=== PATIENT | female | born 1985 | race African-American/Black ===

== ENCOUNTER 2020-06-07 00:12 | Outpatient (CLI) | payer OTHER, SELFPAY ==
[2020-06-07 20:24] LABS: SARS-CoV-2 RNA PCR Negative
== END 2020-06-07 00:13 | disposition home or self-care (01) ==
LOC: ANHCOVIDDT 00:12
PROVIDERS: Visit Provider Obstetrics & Gynecology
DX: Z01.812 Encounter for preprocedural laboratory examination (principal); Z20.828 Contact with and (suspected) exposure to other viral communicable diseases
CPT/HCPCS: 87635; C9803; U0003

== ENCOUNTER 2020-06-09 00:15 | Day surgery (SDC) | payer OTHER, SELFPAY ==
[2020-05-24 16:30] VITALS: BMI 37.8
[2020-06-09] VITALS (8 sets, daily range): BP systolic 132–150; BP diastolic 71–98; PULSE 73–102; RESP 12–18; TEMP 36.3–36.5; O2SAT 98–100
[2020-06-09] MEDS: ACETAMINOPHEN 500 MG TABLET 1000 MG PO (06:18)
[2020-06-09] MEDS: LACTATED RINGERS 1,000 ML 30 ML IV CONT ×2 (06:20→08:27)
--- NOTE | 2020-06-09 07:18 | WPDANESEPPF ---
Anes - Initial Pre Proc Eval Procedure: Operation Date: 06/09/20 07:30 Proposed Procedures p Laparoscopic Bilateral Salpingectomy - Mak Corrales MD Date/Time: 06/09/20 07:18 Surgeon: Mak Corrales MD Pre Op Diagnosis: Sterilization Patient Data Age: 34 Gender: F Height: 5 ft 4 in Weight: 108 kg Last Vital Signs Temp 97.7 F 06/09/20 06:17 Pulse 81 06/09/20 06:17 Resp 18 06/09/20 06:17 BP 132/71 06/09/20 06:17 Pulse Ox 98 06/09/20 06:17 Allergies Allergy/AdvReac Type Severity Reaction Status Date / Time No Known Allergies Allergy Verified 06/09/20 07:05 Home Medications Medication Instructions Recorded Confirmed Type L norgest/e.estradiol-e.estrad 1 tablet PO DAILY #91 each 04/20/20 05/24/20 Rx 0.15 mg-30 mcg (84)/10 mcg(7) tabs,3mos Patient hx anesthesia problems: none Family hx anesthesia problems: none PMFSH Social History Social History Smoking status: Never smoker Second hand tobacco smoke exposure: No Alcohol intake: current Drinks per week: 3 Substance use: current Substance use type: marijuana Last use: 05/25/2020 Spiritual care concerns: No Anes - Eval Final PreProcedure Day of Procedure 06/09/20 07:18 Patient weight: morbidly obese Heart: regular rate and rhythm Lungs: clear to auscultation Airway: Mallampati scale class II Neurological: alert and oriented Last oral intake: >/= 8 hours ASA classification: III Emergent: no Anesthetic plan: proceed Anesthesia type and monitoring: general ETT and standard monitoring Informed Consent: The patient's anesthetic plan and its attendant risks and benefits were discussed with the patient/family/POA. Questions were solicited and answers provided to the satisfaction of the patient/family/POA.
--- NOTE | 2020-06-09 07:18 | PM.IMHP ---
H&P: HPI History of Present Illness Date/Time: 06/09/20 07:18 Chief complaint: Sterilization Narrative: Josh Cason is a 34 year old female Para 3 with satisfied parity. She desires permanent sterilization. She declines all other non permanent forms of control. She denies pelvic pain. She has been informed of risk benefit of laparoscopic sterilization via bilateral salpingectomy and risk benefit of other control options and risk benefit of vasectomy. She continues to desire sterilization. She may decide to continue the pill for menstrual control. Review of Systems Review of Systems: All systems reviewed & are unremarkable except as noted in HPI and below Constitutional: Constitutional: Reports no additional constitutional complaints Eyes: Eyes: Reports no additional eye complaints ENT: Reports Normal hearing present Cardiovascular: Cardiovascular: Denies chest pain and Denies dyspnea Respiratory: Respiratory: Reports no additional respiratory complaints, Denies dyspnea and Reports other Gastrointestinal: Gastrointestinal: Denies abdominal pain Genitourinary: Genitourinary: Reports no additional female genitourinary complaints, Reports as per HPI, Denies dyspareunia, Denies vaginal discharge, Denies vaginal dryness, Denies vaginal odor and Denies vaginal pruritus Integumentary/Breasts: Skin/Breast: Denies breast mass and Denies nipple discharge Neurologic: Reports Normal hearing present Psychiatric: Psychiatric: Reports no additional psychiatric complaints Endocrine: Endocrine: Reports no additional endocrine complaints Hematologic/Lymphatic: Hematologic/Lymphatic: Reports no additional hematologic/lymphatic complaints [facility] Social History Social History Smoking status: Never smoker Second hand tobacco smoke exposure: No Alcohol intake: current Drinks per week: 3 Substance use: current Substance use type: marijuana Last use: 05/25/2020 Spiritual care concerns: No Meds Home Medications and Allergies Home Medications Medication Instructions Recorded Confirmed Type L norgest/e.estradiol-e.estrad 1 tablet PO DAILY #91 each 04/20/20 05/24/20 Rx 0.15 mg-30 mcg (84)/10 mcg(7) tabs,3mos Allergies Allergy/AdvReac Type Severity Reaction Status Date / Time No Known Allergies Allergy Verified 06/09/20 07:05 Vital Signs Vital Signs - 24 hr 06/09/20 06:17 Temperature 97.7 F Pulse Rate 81 Respiratory Rate 18 Blood Pressure 132/71 Pulse Oximetry 98 Exam Const: Orientation/consciousness: oriented to person and oriented to place HENMT: Head: normal to inspection Eyes: General: appearance normal, both eyes and all related structures Resp: Effort & Inspection: normal respiratory effort Auscultation: clear to auscultation bilaterally Cardio: Rate: regular rate Rhythm: regular rhythm GI: Inspection: normal to inspection GI Palp: No abdominal tenderness, Yes Soft to palpation and No Rebound tenderness present : External Female Exam: normal external appearance Bimanual exam- vagina & uterus: normal bimanual exam Bimanual Exam- Adnexa, other: normal adnexae Neuro: General: oriented to person and oriented to place Extrem: General: normal to inspection Psych: Appearance: grossly normal and well kempt Assessment and Plan Assessment and plan (1) Admission for sterilization: Code(s): Z30.2 - Encounter for sterilization Status: Acute Assessment and Plan: Will perform laparoscopic bilateral sterilization by bilateral salpingectomy.
--- NOTE | 2020-06-09 08:22 | PM.OP ---
Procedure Note - Brief Procedure Note - Brief Date of procedure: 06/10/20 Pre-op diagnosis: Sterilization Post-op diagnosis: same Procedure performed: Laparoscopic Bilateral salpingectomy Description of procedure: After informed consent was obtained patient was taken to the operating room and general endotracheal anesthesia was administered. She was placed in low lithotomy need prep prepped sterile fashion. Attention was turned to the vagina speculum inserted single-tooth tenaculum placed on anterior lip of the cervix. [place] uterine manipulator placed into the cervical canal. The speculum was removed. Attention was then turned to the abdomen. With sterile gloves a vertical incision was made at the umbilicus and a Veress needle was inserted into the abdomen confirmation into the abdomen obtained with free flow of fluid and normal peritoneal pressures. A pneumoperitoneum of 15 mm per mercury was obtained. The 5 mm port was inserted under laparoscopic visualization. Patient was placed in Trendelenburg position. Attention was turned to the suprapubic area and a 5 mm port was inserted under laparoscopic visualization. The pelvic organs were visualized. Attention was turned to the right side of the abdomen and another 5 mm port was inserted under laparoscopic visualization. Using the LigaSure the right fallopian tube was excised to near the entrance to the uterus. This was removed through the port. Attention was then turned to the left fallopian tube which was grabbed at the distal end and cauterized from the mesial salpinx to within a cm of the entrance to the entrance to the uterus. The fallopian tube was removed through the 5 mm port. Hemostasis was noted at both sites. Patient was taken out of Trendelenburg position the pneumoperitoneum was released and the skin incisions were closed in a subcuticular fashion with 4 O Vicryl. .5% Marcaine was injected subcutaneously. Anesthesia: GETA Surgeon: Mak Corrales MD Estimated blood loss (mL): 10 Urine output (mL): 25 Drains: No Packing: No Pathology: yes (right and left fallopian tube) Complications: No immediate complications Condition: stable Disposition: PACU Findings: Uterus boggy soft, mildly enlarged, left fallopian tube slightly dilated, small paratubal cyst on left fallopian tube, normal ovaries bilaterally
[2020-06-09] MEDS: ONDANSETRON INJ 4 MG/2 ML VIAL IV PUSH (09:22)
== END 2020-06-09 10:50 | disposition home or self-care (01) ==
PROVIDERS: Visit Provider Obstetrics & Gynecology
PROC: (CPT 49320; principal; 2020-06-09 07:30)
DX: Z30.2 Encounter for sterilization (principal); N83.8 Other noninflammatory disorders of ovary, fallopian tube and broad ligament; E66.01 Morbid (severe) obesity due to excess calories; Z68.41 Body mass index [BMI] 40.0-44.9, adult
CPT/HCPCS: 58661; 88302; A9270; J0330; J1100; J1885; J2250; J2405; J2704; J3010; J7030; J7120

== ENCOUNTER 2021-07-07 07:39 | Emergency (ER) | payer OTHER, SELFPAY ==
--- NOTE | ~2021-07-07 | XR_ITS ---
EXAMINATION: XR chest 1V portable INDICATION: Cough and congestion TECHNIQUE: Portable AP chest at 0854 hours COMPARISON: None available FINDINGS: The lungs are free of acute opacities. There is no pleural effusion or pneumothorax. The ca rdiomediastinal silhouette is normal. IMPRESSION: 1. No acute cardiopulmonary abnormality. Reviewed, dictated and finalized at location A.
[2021-07-07 08:34] VITALS: BP 142/94; PULSE 99; RESP 14; TEMP 36.9; O2SAT 99
[2021-07-07 08:55] VITALS: O2SAT 99
[2021-07-07 09:35] VITALS: PULSE 84; RESP 16
[2021-07-07] MEDS: ALBUTEROL SULFATE NEB 2.5 MG/0.5 ML INH 5 MG INHALATION (09:39)
[2021-07-07] MEDS: IPRATROPIUM BR 0.02% INH SOLN 0.5 MG/2.5 ML VIAL INHALATION (09:40)
[2021-07-07 09:52] VITALS: PULSE 104; RESP 16
--- NOTE | 2021-07-07 09:52 | ED.GENADULT ---
HPI - General Adult General Chief complaint: Upper Respiratory Infection Stated complaint: sob Time Seen by Provider: 07/07/21 09:10 Source: patient Mode of arrival: ambulatory Limitations: no limitations History of Present Illness HPI narrative: Patient who has been vaccinated presents with chief complaint of cough, congestion, headache, diarrhea and dyspnea on exertion that began yesterday. Patient states that her children have runny nose and congestion do not have the other symptoms she is experiencing. Patient states she has not come in contact with a known Covid positive person to her knowledge. Patient denies chest pain, vomiting, syncope, lower extremity pain or swelling. Related Data Allergies Allergy/AdvReac Type Severity Reaction Status Date / Time No Known Allergies Allergy Verified 07/05/20 12:10 Review of Systems Review of Systems: CONSTITUTIONAL: Denies fever, chills, or sweats. EYES: Denies visual changes, redness, or discharge. ENT: Reports rhinorrhea, congestion, sore throat, and left ear otalgia. CARDIOVASCULAR: Denies chest pain, palpitations, or edema. RESPIRATORY: Denies cough or dyspnea. GASTROINTESTINAL: Reports diarrhea denies abdominal pain, nausea, vomiting GENITOURINARY: Denies dysuria or hematuria. SKIN: Denies rash or itching. MUSCULOSKELETAL: Denies back pain, joint pain, or myalgia. NEUROLOGIC: Reports headache denies syncope, numbness, dizziness, or weakness. PSYCHIATRIC: Denies anxiety or depression. [facility] Past Medical History Medical History (Updated 07/07/21 @ 10:02 by Steven Monique PA-C) Asthma Depression Normal spontaneous vaginal delivery Surgical History Surgical History Tubal ligation status Family History Family History Father Family history of type 2 diabetes mellitus Hypertension Grandparent Family history of type 2 diabetes mellitus Mother Hypothyroidism Other Family history of malignant neoplasm of breast Family history of pancreatic cancer Social History Social History Smoking status: Never smoker Second hand tobacco smoke exposure: No Alcohol intake: current Drinks per week: 3 Substance use: current Substance use type: marijuana Last use: 05/25/2020 Spiritual care concerns: No Exam Narrative: GENERAL: Well-appearing, well-nourished, and in no acute distress. HEAD: Normocephalic, atraumatic. EYES: PERRLA and EOMI. ENT: Nares clear, no rhinorrhea or epistaxis. Mucous membranes moist. Oropharynx without tonsillar hypertrophy exudate or other lesions. Bilateral TMs pearly figueroa nonbulging NECK: Supple. No adenopathy or masses range of motion intact. CHEST: Clear to auscultation. No respiratory distress wheezing & some rhonchi heard diffusely. HEART: Regular rate and rhythm. No murmur heard. Normal peripheral pulses. ABDOMEN: Soft, nontender, nondistended, normal active bowel sounds. EXTREMITIES: Normal range of motion. No edema. SKIN: Warm, dry, no rash. NEURO: No focal deficits. Alert and oriented x3. PSYCH: Normal mood and affect. Course Vital Signs Vital signs: Vital Signs Temperature 98.4 F 07/07/21 08:34 Pulse Rate 99 07/07/21 08:34 Respiratory Rate 14 07/07/21 08:34 Blood Pressure 142/94 H 07/07/21 08:34 Pulse Oximetry 99 07/07/21 08:34 Temperature 98.4 F 07/07/21 08:34 Pulse Rate 100 07/07/21 09:55 Respiratory Rate 14 07/07/21 09:55 Blood Pressure 149/72 H 07/07/21 09:55 Pulse Oximetry 98 07/07/21 09:55 Medical Decision Making MDM Narrative Medical decision making narrative: Patient's rhonchi and wheezing have clear after DuoNeb treatment. Because of this patient will be prescribed steroids and albuterol inhaler. Vital Signs Vital Signs: Vital Signs Temperature 98.4 F 07/07/21 08:34 Pulse Rate 99 07/07/21
[2021-07-07] MEDS: methylPREDNISolone SOD SUCC 125 MG VIAL IM (09:53)
[2021-07-07 09:55] VITALS: BP 149/72; PULSE 100; RESP 14; O2SAT 98
[2021-07-07 19:52] LABS: SARS-CoV-2 RNA PCR Negative
== END 2021-07-07 10:20 | disposition home or self-care (01) ==
PROVIDERS: Physician Assistant; Emergency Provider Emergency Medicine; PCP Obstetrics & Gynecology
DX: B34.9 Viral infection, unspecified (principal); Z20.822 Contact with and (suspected) exposure to COVID-19; J45.909 Unspecified asthma, uncomplicated
CPT/HCPCS: 71045; 94640; 96372; 99283; C9803; J2930; U0003; U0005

== ENCOUNTER 2023-04-13 15:46 | Emergency (ER) | payer OTHER, SELFPAY ==
--- NOTE | ~2023-04-13 | CT_ITS ---
EXAMINATION: CT abdomen pelvis w con DATE: 04/13/2023 16:45 INDICATION: Epigastric pain TECHNIQUE: Computed tomography (CT) of the abdomen and pelvis was performed with 100 mL Omnipaque-350 intravenous contrast. Automated exposure control and iterative reconstruction technique were employe d. The dose-length product was 1021.59 mGy-cm. COMPARISON: None. FINDINGS: Lower thorax: Unremarkable Liver: Normal. Biliary/Gallbladder: The gallbladder is partially contracted No bile duct dilation. Pancreas: No mass or duct dilation. Spleen: Normal. Adrenals:No mass. Kidneys: No mass, stone, or hydronephrosis. GI tract: No small or large bowel dilation. Normal appendix. Mesentery/Peritoneum: No ascites, mass, or free air. Prominent right lower quadrant lymph nodes, not pathologic based on size criteria. Retroperitoneum: No mass. Pelvis: Enlarged somewhat heterogeneous uterus, possibly secondary to fibroids. Normal bilateral ovar ies. Small volume free pelvic fluid, within physiologic range. Soft Tissues: Soft tissues and body wall unremarkable. Bones: No acute osseous finding. IMPRESSION: No acute abdominopelvic process detected Reviewed, dictated and finalized at location K.
[2023-04-13 15:52] VITALS: BP 146/80; PULSE 100; RESP 20; TEMP 36.6; O2SAT 100
[2023-04-13 16:21] LABS: Basophils Absolute Auto 0.1 K/mm3 (0.0-0.1); Basophils Percent Auto 0.5 % (0.2-1.2); Eosinophils Absolute Auto 0.2 K/mm3 (0-0.3); Hematocrit 35.3 % (37.0-47.0); Immature Granulocyte Absolute 0.01 K/mm3 (0.00-0.031); Immature Granulocyte Percent A 0.1 % (0-0.5); Lymphocytes Absolute Auto 4.13 K/mm3 (0.9-3.2); Lymphocytes Percent Auto 38.4 % (18.3-44.2); Mean Corpuscular HGB Conc 31.2 g/dl (32-36); Mean Corpuscular Hemoglobin 26.1 pg (26-34); Mean Corpuscular Volume 83.6 fl (80-100); Monocytes Absolute Auto 0.6 K/mm3 (0.1-0.6); Monocytes Percent Auto 5.3 % (2.6-8.5); Neutrophils Absolute Auto 5.8 K/mm3 (1.3-6.7); Neutrophils Percent Auto 53.7 % (45.5-73.1); Platelet Count Result 457 k/mm3 (150-375); Red Blood Count 4.22 M/mm3 (4.2-5.4); Red Cell Distribution Width 14.8 % (11.5-14.5); White Blood Count 10.8 K/mm3 (4.5-10.0)
[2023-04-13 16:30] LABS: Alanine Aminotransferase 23 U/L (6-35); Albumin Level 4.7 g/dL (3.5-5.1); Alkaline Phosphatase 92 U/L (38-126); Anion Gap 7 mmol/L (8-16); Aspartate Amino Transferase 26 U/L (14-36); Bilirubin,Total 0.2 mg/dL (0.2-1.3); Blood Urea Nitrogen 13 mg/dL (7-17); Calcium 9.3 mg/dL (8.4-10.2); Carbon Dioxide 25 mmol/L (22-30); Chloride 105 mmol/L (98-107); Estimated CRCL calculation 103 ml/min; Estimated Glomerular Filt Rate > 60; Glucose 113 mg/dL (65-110); Lipase 68 U/L (23-300); Potassium 3.8 mmol/L (3.4-5.0); Sodium 137 mmol/L (137-145)
--- NOTE | 2023-04-13 16:43 | ED.ABDPAIN ---
HPI - Abdominal Pain General Chief Complaint: Abdominal Pain Stated Complaint: Abdominal pain Time Seen by Provider: 04/13/23 16:05 History of Present Illness HPI narrative: This is a 37-year-old female who denies significant past medical history, presenting to the emergency department complaining of epigastric abdominal pain for the past 2 hours. The patient states approximately 30 minutes prior to onset of pain, she ate ice cream then felt a severe, 8/10 twisting/knotting sensation in the epigastric abdomen, associated with nausea but no radiation. She tried Pepto-Bismol with no change in symptoms. She denies recent trauma. Her LMP was March 24, 2023. Related Data Allergies Allergy/AdvReac Type Severity Reaction Status Date / Time No Known Allergies Allergy Verified 04/13/23 16:55 Review of Systems Review of Systems: CONSTITUTIONAL: Denies fever, chills, or sweats. CARDIOVASCULAR: Denies chest pain, palpitations, or edema. RESPIRATORY: Denies cough or dyspnea. GASTROINTESTINAL: Epigastric abdominal pain, nausea denies vomiting, or diarrhea. GENITOURINARY: Denies dysuria or hematuria. SKIN: Denies rash or itching. MUSCULOSKELETAL: Denies back pain, joint pain, or myalgia. NEUROLOGIC: Denies headache, numbness, dizziness, or weakness. PSYCHIATRIC: Denies anxiety or depression. [facility] Past Medical History Medical History (Updated 04/14/23 @ 00:00 by Background Daemon) Asthma Depression Normal spontaneous vaginal delivery Surgical History Surgical History Tubal ligation status Family History Family History Father Family history of type 2 diabetes mellitus Hypertension Grandparent Family history of type 2 diabetes mellitus Mother Hypothyroidism Other Family history of malignant neoplasm of breast Family history of pancreatic cancer Social History Social History Smoking status: Never smoker Second hand tobacco smoke exposure: No Alcohol intake: current Drinks per week: 3 Substance use: current Substance use type: marijuana Last use: 05/25/2020 Spiritual care concerns: No Exam Narrative: GENERAL: Well-developed, well-nourished, and in no acute distress. HEAD: Normocephalic, atraumatic. EYES: PERRLA and EOMI. CHEST: Clear to auscultation. No respiratory distress. No wheezes rales or rhonchi HEART: Regular rate and rhythm. No murmur heard. Normal peripheral pulses. ABDOMEN: Soft, nontender, nondistended, normal active bowel sounds. No CVA tenderness to palpation EXTREMITIES: Normal range of motion. No edema. SKIN: Warm, dry, no rash. NEURO: No focal deficits. Alert and oriented x3. PSYCH: Normal mood and affect. Course Course Emergency Course: 17:10 - CBC demonstrates mild white blood cell count elevation at 10.8. Mild anemia with hemoglobin of 11, increased from the patient's baseline of 10 and 457. Chemistries unremarkable. UA is a contaminated catch but is not concerning for UTI. CT abdomen pelvis not concerning for acute intra-abdominal process. On reevaluation after GI cocktail, the patient states her pain is improved. I suspect gastritis. Will discharge with PPI and recommendation for primary care follow-up. Discussed return and emergency precautions including signs/symptoms of acute abdomen and intractable vomiting. The patient voiced understanding and is comfortable with the plan. All questions answered to her satisfaction. Vital Signs Vital signs: Vital Signs Temperature 97.9 F 04/13/23 15:52 Pulse Rate 100 04/13/23 15:52 Respiratory Rate 04/13/23 15:52 Blood Pressure 146/80 H 04/13/23 15:52 Pulse Oximetry 100 04/13/23 15:52 Temperature 97.9 F 04/13/23 15:52 Pulse Rate 100 04/13/23 15:52 Respiratory Rate 04/13/23 15:52 Blood Pressure 146/80 H
[2023-04-13] MEDS: SODIUM CHLORIDE 0.9% IV 1,000 ML 999 ML IV CONT (16:55)
[2023-04-13] MEDS: BELLADONNA ALK/PHENOB ELIX 10 ML, MAG HYDROX/ALUMINUM HYD/SIMETH 30 ML, LIDOCAINE HCL 2... PO (16:55)
[2023-04-13 17:23] LABS: Appearance Urine Turbid (Clear); Bacteria Urine 4+ /hpf; Bilirubin Urine Negative (Negative); Blood Urine Negative (Negative); Color Urine Yellow (Yellow); Glucose Urine UA Negative (Negative); Ketones Urine Trace mg/dL (Negative); Leukocyte Esterase Ur 1+ LEU/UL (Negative); Need Manual Microscopic Reviewed; Nitrate Urine Negative (Negative); Non Pathogenic Casts 0-2; Protein Urine Trace mg/dL (Negative); RBC Urine 0-2 /hpf (0-2); Squamous Epithelial Cell Urine Many /hpf (Few); WBC Urine 51-100 /hpf; pH Urine 6.5 (5.0-9.0)
[2023-04-13 17:24] LABS: Specific Grav Ur > 1.045 (1.001-1.035)
[2023-04-13 17:25] LABS: Add Urine Microscopic? YES
== END 2023-04-13 17:26 | disposition home or self-care (01) ==
PROVIDERS: Emergency Provider Preventive Medicine Aerospace Medicine
DX: K29.70 Gastritis, unspecified, without bleeding (principal); R10.13 Epigastric pain; J45.909 Unspecified asthma, uncomplicated
CPT/HCPCS: 36415; 74177; 80053; 81001; 81025; 83690; 85025; 87086; 87088; 99284; A9270; J7030; Q9967

== ENCOUNTER 2023-08-18 20:13 | Emergency (ER) | payer OTHER, SELFPAY ==
[2023-08-18 20:27] VITALS: BP 141/95; PULSE 75; RESP 20; TEMP 37.1; O2SAT 100
--- NOTE | 2023-08-18 21:38 | ED.NECK ---
HPI - Neck Pain/Injury General Chief Complaint: Neck Pain/Injury Stated Complaint: chronic neck pain Time Seen by Provider: 08/18/23 21:25 Source: patient Mode of arrival: ambulatory Limitations: no limitations History of Present Illness HPI Narrative: 37-year-old female presenting with right-sided neck stiffness starting this morning when she woke up. Woke up around 6:00 a.m. and felt some tightness in her neck. Think she slept wrong on it. No injuries. When she woke up again a few hours later it was more stiff. She gets a lot of spasm when she turns her head to the right. No paresthesias or weakness. Otherwise no complaints. No injuries. No headache or lightheadedness. No nausea, vomiting. All other symptoms and complaints are negative as per ROS. Related Data Allergies Allergy/AdvReac Type Severity Reaction Status Date / Time No Known Allergies Allergy Verified 08/18/23 20:38 Review of Systems Review of Systems: All systems reviewed & are unremarkable except as noted in HPI and below PMFSH Past Medical History Medical History Asthma Depression Normal spontaneous vaginal delivery Surgical History Surgical History Tubal ligation status Family History Family History Father Family history of type 2 diabetes mellitus Hypertension Grandparent Family history of type 2 diabetes mellitus Mother Hypothyroidism Other Family history of malignant neoplasm of breast Family history of pancreatic cancer Social History Social History Smoking status: Never smoker Second hand tobacco smoke exposure: No Alcohol intake: current Drinks per week: 3 Substance use: current Substance use type: marijuana Last use: 05/25/2020 Spiritual care concerns: No Exam Narrative: Constitutional: Generally well appearing, no acute distress Head: Atraumatic, no deformities. Eyes: Pupils equal, round, and reactive to light. Neck: Muscle spasm in paraspinal musculature in the cervical spine on the right. No midline tenderness. No deformities. No step-off. ENMT: Mucous membranes moist Cardiovascular: S1, S2 auscultated. No murmurs, rubs, or gallops. No S3/S4. Normal Distal pulses. No peripheral edema. Respiratory: Lung sounds equal. No wheezes, rales, or rhonchi. Musculoskeletal: Normal muscle tone and bulk. No obvious deformities over extremities. Skin: No rashes. Neurological: Strength 5/5 in extremities. Distal sensation intact. Mental Status: Awake, alert and oriented x3. Follows commands Course Vital Signs Vital signs: Vital Signs Temperature 37.1 C 08/18/23 20: Pulse Rate 75 08/18/23 20:27 Respiratory Rate 20 08/18/23 20:27 Blood Pressure 141/95 H 08/18/23 20:27 Pulse Oximetry 100 08/18/23 20:27 Oxygen Delivery Room Air 08/18/23 20:27 Temperature 37.1 C 08/18/23 20:27 Pulse Rate 75 08/18/23 20:27 Respiratory Rate 20 08/18/23 20:27 Blood Pressure 141/95 H 08/18/23 20:27 Pulse Oximetry 100 08/18/23 20:27 Oxygen Delivery Room Air 08/18/23 20:27 MDM - Neck Pain/Injury MDM Narrative Medical decision making narrative: A 37-year-old female presenting with neck spasming on the right side since this morning. States she thinks that she slept wrong on it. On exam she has normal vital signs, borderline hypertensive but otherwise regular. She has some diffuse muscle spasms on the right paraspinal musculature of the cervical spine. No other abnormalities noted to the spine or neck. No step-off or deformity. This was atraumatic. Suspect cervical strain, muscle spasm. Given a dose of Norflex here and prescription for Norflex to go home with. Patient is agreeable with this plan. All questions answered. Pt feeling improved a
[2023-08-18] MEDS: ORPHENADRINE CITRATE 100 MG TABLET.ER PO (21:48)
[2023-08-18 21:55] VITALS: BP 142/88; PULSE 84; RESP 15; O2SAT 98
== END 2023-08-18 21:56 | disposition home or self-care (01) ==
LOC: ANHED 21:48
PROVIDERS: Emergency Provider Emergency Medicine
DX: M62.830 Muscle spasm of back (principal)
CPT/HCPCS: 99283; A9270

== ENCOUNTER 2023-08-21 14:39 | Emergency (ER) | payer OTHER, SELFPAY ==
[2023-08-21] VITALS (13 sets, daily range): BP systolic 144–156; BP diastolic 79–95; PULSE 77–110; RESP 10–24; TEMP 36.6; O2SAT 100
--- NOTE | 2023-08-21 14:47 | ECG_ITS ---
Measurements Intervals [place] Rate: 117 P: 68 MS: 124 QRS: 41 QRSD: 87 T: 28 QT: 326 QTc: 456 Interpretive Statements SINUS TACHYCARDIA BASELINE WANDER- V4 ABNORMAL ECG COMPARED TO ECG 05/08/2019 16:27:10 SINUS TACHYCARDIA NOW PRESENT Electronically Signed On 08-22-2023 6:43:54 CDT by Maximilian Puentes D.O.
--- NOTE | 2023-08-21 17:42 | ECG_ITS ---
Measurements Intervals [place] Rate: 71 P: 64 DC: 138 QRS: 51 QRSD: 83 T: 39 QT: 380 QTc: 415 Interpretive Statements SINUS RHYTHM WITH SINUS ARRHYTHMIA NORMAL ECG COMPARED TO ECG 08/21/2023 14:44:32 SINUS RHYTHM NOW PRESENT SINUS ARRHYTHMIA NOW PRESENT Electronically Signed On 08-22-2023 6:51:23 CDT by Maximilian Puentes D.O.
--- NOTE | 2023-08-21 17:47 | ED.GENADULT ---
[facility] - General Adult General Chief complaint: Unspecified Stated complaint: jittery, heart beating fast Time Seen by Provider: 08/21/23 16:59 Source: patient Mode of arrival: ambulatory Limitations: no limitations History of Present Illness HPI narrative: This is a 37-year-old female who presents to the ED with chief complaint of possible adverse reaction to drug. She was here recently for neck spasm and given muscle relaxer. She feels that the muscle relaxer made her feel very anxious, jittery and have palpitations. She states this specifically happened after taking the drug which she does not want to take anymore. As I interview the patient she states that her symptoms have completely resolved here in the department. Denies any chest pain, shortness of breath, leg swelling, palpitations, cough, numbness, weakness. Related Data Allergies Allergy/AdvReac Type Severity Reaction Status Date / Time No Known Allergies Allergy Verified 08/18/23 21:48 Review of Systems Review of Systems: All systems as dictated in [facility] Past Medical History Medical History (Updated 08/22/23 @ 00:00 by Thanh Forrest) Asthma Depression Normal spontaneous vaginal delivery Surgical History Surgical History Tubal ligation status Family History Family History Father Family history of type 2 diabetes mellitus Hypertension Grandparent Family history of type 2 diabetes mellitus Mother Hypothyroidism Other Family history of malignant neoplasm of breast Family history of pancreatic cancer Social History Social History Smoking status: Never smoker Second hand tobacco smoke exposure: No Alcohol intake: current Drinks per week: 3 Substance use: current Substance use type: marijuana Last use: 05/25/2020 Spiritual care concerns: No Exam Narrative: GENERAL: Well-appearing, well-nourished, and in no acute distress. HEAD: Normocephalic, atraumatic. EYES: PERRLA and EOMI. ENT: Nares clear, no rhinorrhea or epistaxis. Mucous membranes moist. Oropharynx without tonsillar hypertrophy exudate or other lesions. NECK: Supple. No adenopathy or masses. CHEST: No respiratory distress. Clear to auscultation. No wheezes rales or rhonchi HEART: Regular rate and rhythm. No murmur heard. Normal peripheral pulses. ABDOMEN: Soft, nontender, nondistended, normal active bowel sounds. MSK: Normal range of motion. No edema. SKIN: Warm, dry, no rash. NEURO: Alert and oriented x3. No focal deficits. PSYCH: Normal mood and affect. Course Vital Signs Vital signs: Vital Signs Temperature 97.8 F 08/21/23 14:43 Pulse Rate 100 08/21/23 14:43 Respiratory Rate 22 H 08/21/23 14:43 Blood Pressure 156/95 H 08/21/23 14:43 Pulse Oximetry 100 08/21/23 14:43 Oxygen Delivery Room Air 08/21/23 14:43 Temperature 97.8 F 08/21/23 14:43 Pulse Rate 96 08/21/23 18:07 Respiratory Rate 21 H 08/21/23 18:07 Blood Pressure 147/88 H 08/21/23 18:07 Pulse Oximetry 100 08/21/23 18:07 Oxygen Delivery Room Air 08/21/23 14:43 Medical Decision Making MDM Narrative Medical decision making narrative: This is a 37-year-old female who presents to the ED with chief complaint of anxiety and possible adverse drug reaction. Reports that she took Flexeril over the weekend and started feeling anxious and having palpitations. Vitals are normal. ECG does not show any evidence of dysrhythmia or ischemic findings. She would like to proceed today without any further work-up and I feel this is reasonable as her symptoms have completely resolved. Pt will be discharged in stable condition. Instructed to discontinue Flexeril. Return precautions given and supportive measures discussed. Pt is understanding and agreeable with plan for discharge and
== END 2023-08-21 18:08 | disposition home or self-care (01) ==
PROVIDERS: Emergency Provider Physician Assistant; PCP Emergency Medicine
DX: R00.2 Palpitations (principal); F41.9 Anxiety disorder, unspecified; T48.1X5A Adverse effect of skeletal muscle relaxants [neuromuscular blocking agents], initial encounter; J45.909 Unspecified asthma, uncomplicated; R00.0 Tachycardia, unspecified
CPT/HCPCS: 93005; 99284

== ENCOUNTER 2023-10-02 12:59 | Emergency (ER) | payer OTHER, SELFPAY ==
--- NOTE | 2023-10-02 13:08 | ED.URI ---
HPI - URI/Sore Throat General Chief Complaint: Upper Respiratory Infection Stated Complaint: SORE THROAT Time Seen by Provider: 10/02/23 13:09 Source: patient Mode of arrival: ambulatory Limitations: no limitations History of Present Illness HPI Narrative: Josh is a 37-year-old female patient presenting to the clinic today with complaints of sorethroat and right-sided neck pain x1 week. She reports she had went to the ER for the same symptoms and she was diagnosed with a cervical strain. States that they did do a strep test at that time and was negative. Thinks she may have slept on her neck wrong. Was given prescription for muscle relaxers which she does not like the way they make her feel. MD elicited complaint: sore throat and other (Right cervical neck pain/tightness) Related Data Allergies Allergy/AdvReac Type Severity Reaction Status Date / Time No Known Allergies Allergy Verified 08/18/23 21:48 Review of Systems Review of Systems: Pertinent positives per HPI. Patient denies any fever, chills, rash, headache, visual changes, dizziness, cough, shortness of breath, chest pain, palpitations, nausea, vomiting, diarrhea, constipation, abdominal pain, or any urinary issues. PMFSH Past Medical History Medical History Asthma Depression Normal spontaneous vaginal delivery Surgical History Surgical History Tubal ligation status Family History Family History Father Family history of type 2 diabetes mellitus Hypertension Grandparent Family history of type 2 diabetes mellitus Mother Hypothyroidism Other Family history of malignant neoplasm of breast Family history of pancreatic cancer Social History Social History Smoking status: Never smoker Second hand tobacco smoke exposure: No Alcohol intake: current Drinks per week: 3 Substance use: current Substance use type: marijuana Last use: 05/25/2020 Spiritual care concerns: No Comments At the time of my signature, I reviewed and agree with the nursing past medical, surgical, social, and family history. There is no relevant family history pertinent to the patient complaint. Exam Narrative: General: Well-developed, well nourished, in no apparent distress Head: Normocephalic, atraumatic Eyes: Pupils equally round and reactive to light bilaterally, EOM intact, sclera and conjunctive clear, no discharge, lids normal Ears: TMs intact and clear, ear canals clear, no drainage, grossly hearing normal. Nose: Nares patent, clear nasal discharge, no inflammation, no sinus tenderness. Mouth: Oral pharynx red without lesions or masses, good dentition, MMM. Neck: Supple, trachea midline, no enlargement of anterior or posterior cervical nodes, no thyroid masses or goiter palpable. Cardio: Regular rate and rhythm, s1 and s2 normal, no murmur appreciated. Resp: Clear to auscultation bilaterally, no rhonchi, rales, wheezing or rubs Musculoskeletal: No deformity, tender to palpation over the cervical portion of the right trapezius musculature, mild discomfort when turning her head to the left against resistance, empty can and full can testing was negative, grossly normal range of motion, muscle strength strong and equal, peripheral pulse strong, no edema, no cyanosis, normal gait and station Course Course Emergency Course: Portions of this record may have been created with voice recognition software. Level of Care: Express Care Visit Vital Signs Vital signs: Vital signs reviewed MDM - URI/Sore Throat MDM Narrative Medical decision making narrative: At the time of visit patient is resting comfortably on exam table. Strep test was obtained and was positive in the clinic today. I suspect patient may also have
[2023-10-02 13:17] VITALS: BP 150/94; PULSE 86; RESP 16; TEMP 36.8; O2SAT 100
== END 2023-10-02 14:20 | disposition home or self-care (01) ==
PROVIDERS: Emergency Provider Nurse Practitioner Family; PCP Emergency Medicine
DX: J02.0 Streptococcal pharyngitis (principal); S16.1XXA Strain of muscle, fascia and tendon at neck level, initial encounter; X58.XXXA Exposure to other specified factors, initial encounter; J45.909 Unspecified asthma, uncomplicated
CPT/HCPCS: 87880; 99213; G0463

== ENCOUNTER 2023-10-04 12:48 | Outpatient (CLI) | payer OTHER, SELFPAY ==
--- NOTE | ~2023-10-04 | XR_ITS ---
Cervical Spine: AP, lateral, open-mouth views Clinical History: Pain Findings: The normal lordotic curve is maintained. The vertebral bodies and posterior elements appea r intact. The intervertebral disc spaces are well maintained. Pre-vertebral soft tissues are unremar kable. Impression: No significant abnormality is seen. Reviewed, dictated and finalized at [facility]. T DESK ADMIN Impression: No significant abnormality is seen.
== END 2023-10-04 12:49 | disposition home or self-care (01) ==
PROVIDERS: PCP Emergency Medicine; Visit Provider Emergency Medicine
DX: M54.2 Cervicalgia (principal)
CPT/HCPCS: 72040

== ENCOUNTER 2023-10-08 09:04 | Outpatient (CLI) | payer OTHER, SELFPAY ==
[2023-10-08 19:55] LABS: Hemoglobin 9.7 g/dL (12.0-15.0); Mean Corpuscular HGB Conc 30.3 g/dl (32-36); Mean Corpuscular Hemoglobin 25.5 pg (26-34); Mean Corpuscular Volume 84.2 fl (80-100); Mean Platelet Volume 9.5 fl (7.4-10.4); Platelet Count Result 440 k/mm3 (150-375); Red Cell Distribution Width 15.7 % (11.5-14.5); White Blood Count 9.9 K/mm3 (4.5-10.0)
[2023-10-08 19:59] LABS: Iron 36 ug/dL (37-170)
[2023-10-08 20:27] LABS: Free T4 Free Thyroxine 1.86 ng/mL (0.78-2.19); Vitamin D 25 Hydroxy < 12.8 ng/mL
[2023-10-08 20:36] LABS: Alanine Aminotransferase 14 U/L (6-35); Albumin Level 3.9 g/dL (3.5-5.1); Alkaline Phosphatase 81 U/L (38-126); Anion Gap 7 mmol/L (8-16); Aspartate Amino Transferase 25 U/L (14-36); Bilirubin,Total 0.3 mg/dL (0.2-1.3); Blood Urea Nitrogen 21 mg/dL (7-17); Calcium 8.9 mg/dL (8.4-10.2); Carbon Dioxide 26 mmol/L (22-30); Chloride 106 mmol/L (98-107); Cholesterol 200 mg/dL (0-200); Estimated Glomerular Filt Rate > 60; Glucose 83 mg/dL (65-110); HDL Direct 60 mg/dL; Potassium 3.6 mmol/L (3.4-5.0); Sodium 139 mmol/L (137-145); Triglycerides 91 mg/dL (<150)
[2023-10-08 20:38] LABS: Microalbumin Urine Random 13.5 mg/L (0-16.7)
[2023-10-08 20:47] LABS: LDL Cholesterol Direct 95 mg/dL
[2023-10-08 20:53] LABS: MALB Creatinine Ratio 3.2 mg/g (0-30)
[2023-10-08 21:04] LABS: Add Urine Microscopic? YES; Appearance Urine Turbid (Clear); Bacteria Urine None Seen /hpf; Bilirubin Urine Negative (Negative); Blood Urine 1+ (Negative); Calcium Oxalate Crystals Urine Present /hpf; Color Urine Yellow (Yellow); Glucose Urine UA Negative (Negative); Ketones Urine Trace mg/dL (Negative); Leukocyte Esterase Ur Negative LEU/UL (NEGATIVE); Nitrate Urine Negative (Negative); Non Pathogenic Casts 0-2; Protein Urine Negative (Negative); Specific Grav Ur 1.034 (1.001-1.035); Squamous Epithelial Cell Urine Few /hpf (Few); Urobilinogen Urine 0.2 mg/dL (<2.0); WBC Urine 0-5 /hpf (0-3); pH Urine 5.5 (5.0-9.0)
[2023-10-08 21:24] LABS: Hemoglobin A1C 5.8 % (<5.7)
== END 2023-10-08 09:05 | disposition home or self-care (01) ==
LOC: ANHGOSHLAB 09:06
PROVIDERS: PCP Emergency Medicine; Visit Provider Emergency Medicine
DX: D64.9 Anemia, unspecified (principal); F41.9 Anxiety disorder, unspecified; M54.50 Low back pain, unspecified; F32.9 Major depressive disorder, single episode, unspecified; M54.2 Cervicalgia
CPT/HCPCS: 36415; 80053; 80061; 81001; 82043; 82306; 83036; 83540; 84439; 84443; 85027

== ENCOUNTER 2023-11-20 14:26 | Outpatient (CLI) | payer OTHER, SELFPAY ==
[2023-11-20 14:40] LABS: Basophils Absolute Auto 0.1 K/mm3 (0.0-0.1); Basophils Percent Auto 0.6 % (0.2-1.2); Eosinophils Absolute Auto 0.3 K/mm3 (0-0.3); Eosinophils Percent Auto 2.8 % (0-4.4); Hematocrit 33.1 % (37.0-47.0); Hemoglobin 10.2 g/dL (12.0-15.0); Immature Granulocyte Absolute 0.03 K/mm3 (0.00-0.031); Immature Granulocyte Percent A 0.3 % (0-0.5); Lymphocytes Absolute Auto 1.96 K/mm3 (0.9-3.2); Lymphocytes Percent Auto 21.7 % (18.3-44.2); Mean Corpuscular HGB Conc 30.8 g/dl (32-36); Mean Corpuscular Hemoglobin 25.9 pg (26-34); Mean Platelet Volume 8.8 fl (7.4-10.4); Monocytes Absolute Auto 0.5 K/mm3 (0.1-0.6); Monocytes Percent Auto 5.4 % (2.6-8.5); Neutrophils Absolute Auto 6.3 K/mm3 (1.3-6.7); Neutrophils Percent Auto 69.2 % (45.5-73.1); Platelet Count Result 361 k/mm3 (150-375); Red Blood Count 3.94 M/mm3 (4.2-5.4); Red Cell Distribution Width 14.9 % (11.5-14.5)
[2023-11-20 14:42] LABS: Anisocytosis 1+ (NORMAL); Microcytosis 1+ (NORMAL); Platelet Estimate Adequate (Adequate); Schistocytes None Seen (NORMAL)
[2023-11-20 16:51] LABS: Iron 36 ug/dL (37-170)
[2023-11-20 16:55] LABS: Alanine Aminotransferase 14 U/L (6-35); Albumin Level 4.2 g/dL (3.5-5.1); Alkaline Phosphatase 73 U/L (38-126); Anion Gap 6 mmol/L (8-16); Aspartate Amino Transferase 19 U/L (14-36); Bilirubin,Total 0.3 mg/dL (0.2-1.3); Blood Urea Nitrogen 15 mg/dL (7-17); Calcium 9.7 mg/dL (8.4-10.2); Carbon Dioxide 27 mmol/L (22-30); Chloride 106 mmol/L (98-107); Estimated Glomerular Filt Rate > 60; Glucose 100 mg/dL (65-110); Sodium 139 mmol/L (137-145)
[2023-11-20 17:27] LABS: Ferritin 8.76 ng/mL (6.24-137)
[2023-11-20 18:00] LABS: Folic Acid 7.5 ng/mL (2.76->20)
[2023-11-20 18:08] LABS: Percent Iron Saturation 10 % (20-50)
[2023-11-23 11:26] LABS: Methylmalonic Acid 67 nmol/L (87-318)
[2023-11-26 11:07] LABS: Soluble Transferrin Receptor 2.29 mg/L (0.76-1.76)
== END 2023-11-20 14:27 | disposition home or self-care (01) ==
LOC: ANHLAB 14:27
PROVIDERS: PCP Emergency Medicine; Visit Provider Internal Medicine Hematology & Oncology
DX: D64.9 Anemia, unspecified (principal)
CPT/HCPCS: 36415; 80053; 82607; 82728; 82746; 83540; 83550; 83921; 84238; 85025